=== PATIENT | male | born 1960 | race Caucasian/White ===

== ENCOUNTER 2017-10-10 20:54 | Emergency (ER) | payer OTHER ==
[~2017-10-10] VITALS: Ht 177.8 cm; Wt 77.1 kg
[~2017-10-10 20:54] MED LIST: PREDNISONE 10MG10 M1 PO; VALIUM2 MG PO
[2017-10-10 23:13] VITALS: BP 117/69
--- NOTE | 2017-10-10 23:18 | ED SKIN/ALLERGY COMPLAINT ---
History of Present Illness General Chief Complaint: Animal/Insect Bite Stated Complaint: POSSIBLE INSECT BITE TO R LEG Source: patient Exam Limitations: no limitations Vital Signs & Intake/Output Vital Signs & Intake/Output Vital Signs Date Time Temp Pulse Resp B/P B/P Pulse O2 O2 Flow FiO2 Mean Ox Delivery Rate 10/10 2313 67 18 117/69 97 Room Air 10/102 97.5 66 20 105/64 95 Room Air ED Intake and Output 10/11 0000 10/10 1200 Intake Total 0 Output Total Balance 0 Intake, Oral 0 Patient 170 lb Weight Weight Reported by Patient Measurement Method Allergies Coded Allergies: MDX - PCN (penicillin) (PCN (PENICILLIN)) (12/10/10) Reconcile Medications Cephalexin (Keflex) 500 MG CAPSULE 1 CAP PO BID CELLULITIS Diazepam (Valium) 2 MG TABLET 1 TAB PO QHS MUSCLE SPASMS Prednisone 10 MG TABLET 1 TAB PO DAILY BACK PAIN 3 TABS PO X 3 DAYS 2 TABS PO X 3 DAYS 1 TAB PO X 3 DAYS Sulfamethoxazole/Trimethoprim (Bactrim Ds Tablet) 800 MG-160 MG TABLET 1 TAB PO BID CELLULITIS Triage Note: PT HERE WITH C/O ? INSECT BITE BEHIND RIGHT KNEE. PER PT WAS WALKING DOG LAST NIGHT AND FELT SOMETHING BITE HIM. TODAY PT'S NOTED PT TO HAVE WHITE SPOTS IN AREA. PT HAS APPROX 4 WHITE BLISTER/PIMPLES TO BEHIND RIGHT KNEE. Triage Nurses Notes Reviewed? yes Onset: Gradual Duration: constant Severity: mild Severity Numbers: 3 HPI: Patient is a 57-year-old male with a past medical history diabetes who presents emergency room with concerns of walking his dog yesterday and noticed acute onset of suspecting unknown insect bite to the left behind the knee and since has noticed red pustules to the region and mild pain. Denies any fever chills tetanus is unknown Denies any specific known insect or animal or BAT THAT BIT him (Sven No) Past History Travel History Traveled to [place] past 21 day No Medical History Any Pertinent Medical History? see below for history Cardiovascular: hyperlipidemia Musculoskeletal: chronic back pain Endocrine: diabetes Tetanus Vaccine: Surgical History Surgical History: non-contributory Psychosocial History What is your primary language Taiwanese Tobacco Use: Never used ETOH Use: denies use Illicit Drug Use: denies illicit drug use Family History Hx Contributory? No (Sven No) Review of Systems Review of Systems Constitutional: Reports: no symptoms. EENTM: Reports: no symptoms. Respiratory: Reports: no symptoms. Cardiovascular: Reports: no symptoms. GI: Reports: no symptoms. Genitourinary: Reports: no symptoms. Musculoskeletal: Reports: no symptoms. Skin: Reports: see HPI. Neurological/Psychological: Reports: no symptoms. Hematologic/Endocrine: Reports: no symptoms. Immunologic/Allergic: Reports: no symptoms. All Other Systems: Reviewed and Negative (Sven No) Physical Exam Physical Exam General Appearance: no apparent distress, alert Head: atraumatic Eyes: Bilateral: normal appearance. Ears, Nose, Throat: hearing grossly normal Neck: normal inspection Respiratory: no respiratory distress Extremities: normal capillary refill, normal range of motion, no edema Neurologic/Psych: no motor/sensory deficits, awake, alert, oriented x 3 Diagram Body: 1) Noted 5 pustules with mild surrounding erythema (Sven No) Progress Differential Diagnosis: abscess/cellulitis, contact dermatitis, erythema multiforme, lyme disease Plan of Care: Current Medications Sig/Danica Start time Last Medication Dose Stop Time Status Admin Tetanus/Diphtheria 0.5 ML ONCE ONE 10/10 2344 UNVr Toxoids Adsorbed 10/10 2345 (Decavac) On examination patient has #5 pustules behind the left knee to the popliteal region full active range of motion mild surrounding erythema using a 22-gauge needle I tried to aspirate the past 2 months however nothing was obtained mild bleeding occurred over was controlled and ceased prior to discharge bacitracin and bandage was applied patient will be prescribed Keflex and Bactrim Tetanus was updated (Sven No) Departure Departure Disposition: HOME OR SELF CARE Condition: Stable Clinical Impression Primary Impression: Cellulitis of knee, left Secondary Impressions: Bug bite Referrals: Ramana MARTINEZ,Ki Rivas (PCP/Family) Additional Instructions: As discussed IF the symptoms worsen or IF YOU develop any new concerning symptom return to emergency room. Begin the prescription of Bactrim and Keflex as directed. Begin to apply bacitracin to the region once a day for the FOLLOWING 4 days. [facility]. Follow-up with your doctor on Saturday Departure Forms: Customer Survey General Discharge Information Prescriptions: Current Visit Scripts Cephalexin (Keflex) 1 CAP PO BID #14 CAP Sulfamethoxazole/Trimethoprim (Bactrim Ds Tablet) 1 TAB PO BID #14 TAB (Sven No) PA/TOLL MECHANIC Co-Sign Statement Statement: ED Attending supervision documentation- x I saw and evaluated the patient. I have also reviewed all the pertinent lab results and diagnostic results. I agree with the findings and the plan of care as documented in the PA's/TOLL MECHANIC's documentation. [] I have reviewed the ED Record and agree with the PA's/TOLL MECHANIC's documentation. [] Additions or exceptions (if any) to the PAs/TOLL MECHANIC's note and plan are summarized below: [] (Faith MARTINEZ,Landon)
[2017-10-10] MEDS ORDERED: KEFLEX500 M1 PO (23:32)
[2017-10-10] MEDS ORDERED: BACTRIM DS TAB1 EACH PO (23:32)
== END 2017-10-10 23:54 ==
LOC: ERH 20:54
DX: S80.262A Insect bite (nonvenomous), left knee, initial encounter (principal); L03.116 Cellulitis of left lower limb; W57.XXXA Bitten or stung by nonvenomous insect and other nonvenomous arthropods, initial encounter; Y93.K1 Activity, walking an animal; Y92.9 Unspecified place or not applicable
CPT/HCPCS: 90471; 90714